=== PATIENT | female | born 2000 | race Caucasian/White ===

== ENCOUNTER 2019-10-14 14:04 | Emergency (ER) | payer OTHER ==
[~2019-10-14] VITALS: Ht 160 cm; Wt 60.0 kg
[~2019-10-14 14:04] MED LIST: CLIN300C8 PO
[2019-10-14 14:12] VITALS: BP 106/66
--- NOTE | 2019-10-14 14:15 | PHYS DOC ---
Past History Past Medical History: No Pertinent History Past Surgical History: No Surgical History Smoking: Non-smoker Alcohol Use: None Drug Use: None Adult General Chief Complaint Chief Complaint: SORE THROAT HPI HPI Patient is a 18-year-old female who presents with complaint of a sore throat since this morning and gradually has gotten worse. No fever, chills, cough. Patient states that she has a history of chronic strep but her doctors refuse to take her tonsils out. Sudafed this morning without relief. Pain is moderate Review of Systems Review of Systems All other ROS is negative unless otherwise stated in HPI Allergies Allergies Allergies Coded Allergies Type Severity Reaction Last Updated Verified No Known Drug Allergies 10/14/19 No Physical Exam Physical Exam See above Constitutional: Well developed, well nourished, no acute distress, non-toxic appearance. [] HENT: Normocephalic, atraumatic, bilateral external ears normal, oropharynx moist, no oral exudates, nose normal. Posterior pharynx is erythematous with questionable exudates. Tonsillar pits are noted bilaterally Eyes: PERRLA, EOMI, conjunctiva normal, no discharge. [] Neck: Normal range of motion, no tenderness, supple, no stridor. [] Cardiovascular:Heart rate regular rhythm, no murmur [] Lungs & Thorax: Bilateral breath sounds clear to auscultation [] Skin: Warm, dry, no erythema, no rash. [] Back: No tenderness, no CVA tenderness. [] Extremities: No tenderness, no cyanosis, no clubbing, ROM intact, no edema. [] Neurologic: Alert and oriented X 3, normal motor function, normal sensory function, no focal deficits noted. [] Psychologic: Affect normal, judgement normal, mood normal. [] EKG EKG [] Radiology/Procedures Radiology/Procedures [] Course & Med Decision Making Course & Med Decision Making Pertinent Labs and Imaging studies reviewed. (See chart for details) strep negative. We'll treat her viral pharyngitis with redness around Dragon Disclaimer Dragon Disclaimer This electronic medical record was generated, in whole or in part, using a voice recognition dictation system. Departure Departure: Impression: Primary Impression: Acute viral pharyngitis Disposition: HOME, SELF-CARE Condition: STABLE Referrals: PCP,JELANI (PCP) Patient Instructions: Viral Pharyngitis Additional Instructions: You can gargle with salt water and/or benadryl to help with pain. Motrin and tylenol can be used as well. Scripts Prednisone (PREDNISONE) 20 Mg Tablet 40 MG PO DAILY for Viral Pharyngitis for 5 Days, #10 TAB Prov: HAI BERNAL DO 10/14/19 HAI BERNAL DO Oct 14, 2019 14:15
[2019-10-14] MEDS ORDERED: PRED20TA PO (14:52)
== END 2019-10-14 14:56 | disposition home or self-care (01) ==
LOC: ER 14:04
DX: J02.8 Acute pharyngitis due to other specified organisms (principal); B97.89 Other viral agents as the cause of diseases classified elsewhere
CPT/HCPCS: 87070; 87880; 99283

== ENCOUNTER 2019-12-09 14:05 | Emergency (ER) | payer OTHER ==
[~2019-12-09] VITALS: Ht 160 cm; Wt 60.0 kg
[~2019-12-09 14:05] MED LIST changes: +PRED20TA PO
[2019-12-09] MEDS ORDERED: AMOX1TAB61 PO (14:23)
--- NOTE | 2019-12-09 14:23 | PHYS DOC ---
Past History Past Medical History: No Pertinent History Additional Past Medical Histor: Strep throat Past Surgical History: No Surgical History Smoking: Non-smoker Alcohol Use: None Drug Use: None Adult General Chief Complaint Chief Complaint: SORE THROAT HPI HPI 19-year-old female presents with 2 day history of sore throat. Patient reports history of frequent pharyngitis. Denies . Denies fever or chills. Denies known sick contacts. Denies cough or shortness of air. Review of Systems Review of Systems Constitutional: Denies fever or chills Eyes: Denies redness or eye pain HENT: Denies nasal congestion; reports sore throat Respiratory: Denies cough or shortness of breath Cardiovascular: Denies chest pain or palpitations GI: Denies abdominal pain, nausea, or vomiting : Denies dysuria or hematuria Musculoskeletal: Denies back pain or joint pain Integument: Denies rash or skin lesions Neurologic: Denies headache, focal weakness or sensory changes Complete systems were reviewed and found to be within normal limits, except as documented in this note. Allergies Allergies Allergies Coded Allergies Type Severity Reaction Last Updated Verified No Known Drug Allergies 10/14/19 No Physical Exam Physical Exam Constitutional: Well developed, well nourished, no acute distress, non-toxic appearance HENT: Normocephalic, atraumatic, oropharynx moist, pharynx erythematous with tonsillar exudate, uvula midline Eyes: Conjunctiva normal, no discharge Neck: Normal range of motion, supple Lungs & Thorax: Equal rise and fall of chest, atraumatic Skin: Warm, dry, no erythema, no rash Extremities: No deformity, gait steady Neurologic: Alert and oriented X 3, no focal deficits noted Psychologic: Affect normal, judgment normal EKG EKG [] Radiology/Procedures Radiology/Procedures [] Course & Med Decision Making Course & Med Decision Making Pertinent Lab studies reviewed. (See chart for details) Patient presents with sore throat 2 days. Reports frequent history of pharyngitis. Patient was seen beginning of October 2019 for similar with negative rapid strep and negative throat culture per [facility] review. Afebrile upon arrival. Patient was noted to have significant erythema with tonsillar exudate. Rapid strep negative.. Symptomatic treatment provided with one-time dose oral dexamethasone. Empiric antibiotics prescribed with instructions to watch and wait. Patient stable for discharge with outpatient follow-up with PCP. Discussed findi ngs and plan with patient, who acknowledges understanding and agreement. Dragbrian Disclaimer Dragon Disclaimer This electronic medical record was generated, in whole or in part, using a voice recognition dictation system. Departure Departure: Impression: Primary Impression: Pharyngitis Disposition: 01 HOME, SELF-CARE Condition: STABLE Referrals: PCP,NO (PCP) Patient Instructions: Viral and Bacterial Pharyngitis, [id number] Additional Instructions: Hold antibiotics for 48 hours. If symptoms worsen or for fever > 100.3 F after 48 hours then start antibiotics as prescribed. Scripts Amoxicillin/Potassium Clav (AUGMENTIN 875-125 TABLET) 1 Each Tablet 1 TAB PO BID for Pharyngitis for 7 Days, #14 TAB 0 Refills Prov: LORENA LAMBERT DO 12/09/19 Problem Qualifiers Primary Impression: Pharyngitis Pharyngitis/tonsillitis etiology: unspecified etiology Qualified Codes: J02.9 - Acute pharyngitis, unspecified LORENA LAMBERT DO Dec 09, 2019 14:23
[2019-12-09] MEDS ORDERED: DEXAMETHASONE 4 MG TABLET PO ONE (14:30)
[2019-12-09 14:47] VITALS: BP 117/75
== END 2019-12-09 14:34 | disposition home or self-care (01) ==
LOC: ER 14:05
DX: J02.9 Acute pharyngitis, unspecified (principal)
CPT/HCPCS: 87070; 87880; 99283; J8540

== ENCOUNTER 2021-02-07 18:44 | Emergency (ER) | payer OTHER ==
[~2021-02-07] VITALS: Ht 157.5 cm; Wt 60.4 kg
[~2021-02-07 18:44] MED LIST changes: +AMOX1TAB61 PO; -CLIN300C8 PO; +CLIN300C9 PO
--- NOTE | 2021-02-07 19:29 | PHYS DOC ---
Past History Past Medical History: No Pertinent History Additional Past Medical Histor: Strep throat Past Surgical History: No Surgical History Smoking: Non-smoker Alcohol Use: None Drug Use: None Adult General Chief Complaint Chief Complaint: CONGESTION HPI HPI Patient is a otherwise healthy 20-year-old female who presents with a few days of nasal congestion, cough, sore throat and fever. States that it started a few days ago with nasal congestion, and then felt like it went into her chest and she started to cough, but feels that her cough is due to throat irritation. States that she is also had a fever and then a mild sore throat. States she is able to eat and drink without issue. States he has been taking some Tylenol at home. Denies any recent trauma, travels, illnesses, known ill contacts. States he is making urine and stool normally for her. Review of Systems Review of Systems Review of systems otherwise unremarkable except noted in HPI Current Medications Current Medications Current Medications Medications (Trade) Dose Ordered Sig/Dominik Start Time Stop Time Status Last Admin Dose Admin Acetaminophen (Tylenol) 1,000 mg 1X ONCE 02/07/21 19:30 02/07/21 19:31 UNV Ibuprofen (Motrin) 600 mg 1X ONCE 02/07/21 19:30 02/07/21 19:31 UNV Oxymetazoline HCl (Afrin) 2 spray 1X ONCE 02/07/21 19:30 02/07/21 19:31 UNV Allergies Allergies Allergies Coded Allergies Type Severity Reaction Last Updated Verified No Known Drug Allergies 10/14/19 No Physical Exam Physical Exam Constitutional: Well developed, well nourished, no acute distress, non-toxic appearance. [] HENT: Normocephalic, atraumatic, bilateral external ears normal, oropharynx with bilateral erythema mild edema unilateral exudate, nose normal. [] Eyes: conjunctiva normal, no discharge. [] Neck: Normal range of motion, no tenderness, supple, no stridor left-sided cervical lymphadenopathy, [] Cardiovascular:Heart rate regular rhythm, no murmur [] Lungs & Thorax: Mild bilateral rhonchi/congestion Skin: Warm, dry, no erythema, no rash. [] Extremities: No tenderness, ROM intact, no edema. [] Neurologic: Alert and oriented X 3, normal motor function, normal sensory function, no focal deficits noted. [] Psychologic: Affect normal, judgement normal, mood normal. [] Current Patient Data Vital Signs Vital Signs Date Time Temp Pulse Resp B/P (MAP) Pulse Ox O2 Delivery O2 Flow Rate FiO2 02/07/21 19:05 98.5 75 20 116/74 (88) 98 Room Air EKG EKG [] Radiology/Procedures Radiology/Procedures [] Heart Score C/O Chest Pain: No Risk Factors: Risk Factors: DM, Current or recent (<one month) smoker, HTN, HLP, family history of CAD, obesity. Risk Scores: Risk Factors: DM, Current or recent (<one month) smoker, HTN, HLP, family history of CAD, obesity. Course & Med Decision Making Course & Med Decision Making Patient is a 20-year-old female who presents with couple of days of nasal congestion, cough, fever and sore throat Vital signs in the emergency department not concerning. Physical exam noted above. Given Tylenol, ibuprofen and Afrin. Centor criteria suggestive of strep pharyngitis. Clinical impression is strep pharyngitis. Chest x-ray not concerning. Given dexamethasone and started on amoxicillin in the ED for strep pharyngitis. Discussed symptom management at home. Advised on antibiotics. Advised to follow-up with primary care. Gave return precautions to the ED. Patient grateful, verbalized understanding and agreed with plan of discharge Dragon Disclaimer Dragon Disclaimer This electronic medical record was generated, in whole or in part, using a voice recognition dictation system. Departure Departure: Impression: Primary Impression: Strep pharyngitis Disposition: HOME / SELF CARE / HOMELESS Condition: GOOD Referrals: PCP,JELANI (PCP) CELINA MARRERO MD Patient Instructions: Strep Throat Additional Instructions: Please read all the attached information very carefully. You can continue Tylenol, and ibuprofen at home as needed for pain control. Also Cepacol lozenges as discussed can provide pain control as well. Please take your antibiotics as per prescription. Please follow-up with your primary care as needed. Please come back to the ED with new or concerning symptoms as discussed. Scripts Amoxicillin (AMOXICILLIN) 500 Mg Capsule 1 CAP PO BID for strep throat for 10 Days, #19 CAP Prov: RELL GREEN MD 02/07/21 RELL GREEN MD Feb 07, 2021 19:29
[2021-02-07] MEDS ORDERED: OXYMETAZOLINE 0.05% NASAL SPRAY 30ML BOTTLE. NS ONE (19:30)
[2021-02-07] MEDS ORDERED: ACETAMINOPHEN 500 MG TABLET PO ONE (19:30)
[2021-02-07] MEDS ORDERED: IBUPROFEN 600 MG TABLET. PO ONE (19:30)
[2021-02-07] MEDS ORDERED: AMOX500C PO (19:54)
[2021-02-07 20:00] VITALS: BP 122/75
[2021-02-07] MEDS ORDERED: AMOXICILLIN 250 MG CAPSULE PO ONE (20:00)
[2021-02-07] MEDS ORDERED: DEXAMETHASONE 4 MG TABLET PO ONE (20:00)
--- NOTE | 2021-02-07 20:00 | RAD ---
EXAM: Chest, single view. HISTORY: Cough and fever. COMPARISON: None. FINDINGS: A frontal view of the chest is obtained. There is no infiltrate, pleural effusion or pneumo thorax. The heart is normal in size. IMPRESSION: No acute pulmonary finding. Electronically signed by: Maia Art MD (02/07/2021 7:57 PM) [facility]
== END 2021-02-07 20:03 | disposition home or self-care (01) ==
LOC: ER 18:44
DX: J02.0 Streptococcal pharyngitis (principal)
CPT/HCPCS: 71045; 99284; J8540

== ENCOUNTER 2021-09-13 08:29 | Emergency (ER) | payer OTHER ==
[~2021-09-13] VITALS: Ht 157.5 cm; Wt 59.0 kg
[~2021-09-13 08:29] MED LIST changes: +AMOX500C PO; +CLIN-95 PO; -CLIN300C9 PO
--- NOTE | 2021-09-13 12:11 | PHYS DOC ---
Past History Past Medical History: No Pertinent History, Bronchitis Additional Past Medical Histor: Strep throat Past Surgical History: No Surgical History Smoking: Non-smoker Alcohol Use: None Drug Use: None Adult General Chief Complaint Chief Complaint: COUGH HPI HPI Patient is a 20-year-old female patient presented to the ED today complaining of productive cough with chest congestion, symptoms began on Tuesday, patient is also reporting slight generalized chest pain only on inhalation and exhalation that has been occurring intermittently since Tuesday. Denies any fever. Reports shortness of breath on the exertion. Reports being vaccinated against COVID-19. Denies any personal or family history of cardiac events before the age of 50. Reports living in a household with parents who were smokers when she was young. She states currently she does not live with any smokers. She states due to these she has had multiple episodes of bronchitis. She states she did a home rapid COVID test yesterday which was negative. Review of Systems Review of Systems Constitutional: Denies fever or chills [] Eyes: Denies change in visual acuity, redness, or eye pain [] HENT: Denies nasal congestion or sore throat [] Respiratory: Reports cough and shortness of breath [] Cardiovascular: Reports chest pain GI: Denies abdominal pain, nausea, vomiting, bloody stools or diarrhea [] : Denies dysuria or hematuria [] Musculoskeletal: Denies back pain or joint pain [] Integument: Denies rash or skin lesions [] Neurologic: Denies headache, focal weakness or sensory changes [] All other systems were reviewed and found to be within normal limits, except as documented in this note. Allergies Allergies Allergies Coded Allergies Type Severity Reaction Last Updated Verified No Known Drug Allergies 10/14/19 No Physical Exam Physical Exam Constitutional: Well developed, well nourished, no acute distress, non-toxic appearance. [] HENT: Normocephalic, atraumatic, bilateral external ears normal, oropharynx moist, no oral exudates, nose normal. [] Eyes: PERRLA, EOMI, conjunctiva normal, no discharge. [] Neck: Normal range of motion, no tenderness, supple, no stridor. [] Cardiovascular:Heart rate regular rhythm, no murmur [] Lungs & Thorax: Bilateral breath sounds clear to auscultation [] Abdomen: Bowel sounds normal, soft, no tenderness, no masses, no pulsatile masses. [] Skin: Warm, dry, no erythema, no rash. [] Back: No tenderness, no CVA tenderness. [] Extremities: No tenderness, no cyanosis, no clubbing, ROM intact, no edema. [] Neurologic: Alert and oriented X 3, normal motor function, normal sensory function, no focal deficits noted. [] Psychologic: Affect normal, judgement normal, mood normal. [] Current Patient Data Vital Signs Vital Signs Date Time Temp Pulse Resp B/P (MAP) Pulse Ox O2 Delivery O2 Flow Rate FiO2 09/13/21 11:47 64 20 113/79 (90) 100 Room Air 09/13/21 10:11 98.1 EKG EKG [] Radiology/Procedures Radiology/Procedures []PROCEDURE: CHEST AP ONLY AP portable chest radiograph 09/13/2021 Clinical History: Cough. An AP erect portable digital radiograph of the chest was obtained. Comparison study is dated 02/07/2021. The cardiac and mediastinal silhouettes are within normal limits in size and configuration. No pulmonary infiltrate is seen. No pleural effusion or pneumothorax is noted. The osseous structures are grossly intact. Impression: No acute abnormality is seen. Electronically signed by: Hair Sethi MD (09/13/2021 1:07 PM) [id number] DICTATED AND SIGNED BY: HAIR SETHI MD DATE: 09/13/21 1307 CC: CARO LAMBERT FIBER TECHNOLOGIST; PCP,NO ~MTH0 0 Heart Score C/O Chest Pain: N/A Risk Factors: Risk Factors: DM, Current or recent (<one month) smoker, HTN, HLP, family history of CAD, obesity. Risk Scores: Risk Factors: DM, Current or recent (<one month) smoker, HTN, HLP, family history of CAD, obesity. Course & Med Decision Making Course & Med Decision Making Pertinent Labs and Imaging studies reviewed. (See chart for details) This is a 20-year-old female patient presented to the ED today complaining of a productive cough, chest congestion, shortness of breath, chest pain inhalation and exhalation, symptoms began 3 days ago. O2 sats on arrival to the ED 99% on room air, temperature 98.1, blood pressure 117/78, heart rate in the 60s Chest x-ray interpreted by radiologist was negative for any acute findings, negative influenza A and B. Pending PCR COVID test. Discharge to home. Provided return precautions. Dragon Disclaimer Dragon Disclaimer This electronic medical record was generated, in whole or in part, using a voice recognition dictation system. Departure Departure: Impression: Primary Impression: Cough Additional Impressions: URI (upper respiratory infection) Person under investigation for COVID-19 Disposition: HOME / SELF CARE / HOMELESS Condition: STABLE Referrals: PCP,NO (PCP) follow up with your doctor in one week Patient Instructions: Cough, Adult, [id number], Upper Respiratory Infection, Adult, [id number] Additional Instructions: You were evaluated in the emergency room for viral type symptoms. Your Chest x- ray is negative for pneumonia. Your rapid Influenza A and B test are negative. You have a pending COVID PCR test. Quarantine yourself until we call you with the results. Use the medicines prescribed as ordered. Follow-up with your doctor in 1 week if symptoms continue Scripts Albuterol Sulfate (Proair Respiclick) 90 Mcg Aer.pow.ba 1 PUFF INH PRN Q4HRS PRN for FOR ASTHMA, #1 EACH Prov: CARO LAMBERT APRN 09/13/21 Benzonatate (BENZONATATE) 100 Mg Capsule 1 CAP PO TID, #30 CAP Prov: CARO LAMBERT APRN 09/13/21 Problem Qualifiers Additional Impressions: URI (upper respiratory infection) URI type: unspecified URI Qualified Codes: J06.9 - Acute upper respiratory infection, unspecified CARO LAMBERT APRN Sep 13, 2021 12:10
[2021-09-13 13:04] LABS: INFLUENZA A PATIENT NEGATIVE (NEGATIVE); INFLUENZA B PATIENT NEGATIVE (NEGATIVE)
--- NOTE | 2021-09-13 13:10 | RAD ---
AP portable chest radiograph 09/13/2021 Clinical History: Cough. An AP erect portable digital radiograph of the chest was obtained. Comparison study is dated 02/07/2021. The cardiac and mediastinal silhouettes are within normal limits in size and configuration. No pulmon jules infiltrate is seen. No pleural effusion or pneumothorax is noted. The osseous structures are joaquin sly intact. Impression: No acute abnormality is seen. Electronically signed by: Hair Rosales MD (09/13/2021 1:07 PM) [id number]
[2021-09-13] MEDS ORDERED: PROAIR RESPICL90 MCG INH (13:38)
[2021-09-13] MEDS ORDERED: BENZ-8 PO (13:38)
[2021-09-13 13:50] VITALS: BP 91/67
== END 2021-09-13 14:03 | disposition home or self-care (01) ==
LOC: ER 08:29
DX: U07.1 COVID-19 (principal); J06.9 Acute upper respiratory infection, unspecified
CPT/HCPCS: 71045; 87804; 99285; C9803; U0003